=== PATIENT | male | born 1955 | race Two or more races ===

== ENCOUNTER 2020-09-01 15:37 | Emergency (ER) | payer OTHER ==
[~2020-09-01] VITALS: Ht 180.3 cm; Wt 86.2 kg
[2020-09-01 15:48] VITALS: BP 128/89
[2020-09-01] MEDS ORDERED: TETANUS-DIPTH-ACEL PERTUSSIS 0.5ML SYR Tdap IM ONE (16:15)
[2020-09-01] MEDS ORDERED: ACETAMINOPHEN 500 MG TAB PO ONE (16:15)
[2020-09-01] MEDS ORDERED: LIDOCAINE 1% HCL (LOCAL ANESTH.) INJ 20ML MDV IJ ONE (16:30)
[2020-09-01] MEDS ORDERED: BACITRACIN TOP OINT 1 UD PKG TOP ONE (16:30)
== END 2020-09-01 18:09 | disposition home or self-care (01) ==
LOC: EDBD 15:37 → ER 15:42
DX: S01.81XA Laceration without foreign body of other part of head, initial encounter (principal); Z23 Encounter for immunization; W19.XXXA Unspecified fall, initial encounter; Y93.89 Activity, other specified; Y92.89 Other specified places as the place of occurrence of the external cause; Y99.8 Other external cause status
CPT/HCPCS: 12011; 90471; 90715; 99283; J2001